=== PATIENT | female | born 1965 | race Caucasian/White ===

== ENCOUNTER → 2017-10-14 | Outpatient (REF) | payer OTHER ==
[2017-10-14 20:57] LABS: PLATELET COUNT, AUTOMATED 178 K/uL (150-450)
== END ==
PROVIDERS: ATTEND Family Medicine
DX: R10.9 Unspecified abdominal pain (principal)
CPT/HCPCS: 82040; 82247; 82310; 82374; 82435; 82565; 82947; 84075; 84132; 84155; 84295; 84450; 84460; 84520; 85025

== ENCOUNTER → 2017-10-18 | Outpatient (CLI) | payer OTHER ==
--- NOTE | 2017-10-18 11:00 | RADIOLOGY IMAGING REPORT ---
FACILITY: [facility] - [place] PATIENT NAME: Mikayla Mooney : 1965 MR: [id number] V: [id number] EXAM DATE: ORDERING PHYSICIAN: YURI REAL TECHNOLOGIST: Location: [facility] - [place] Patient: Mikayla Mooney : 1965 Visit/Account:[id number] Date of Sevice: 10/18/2017 EXAMINATION: Abdominal ultrasound complete HISTORY: Abdominal pain. COMPARISON: None. FINDINGS: Gallbladder: No stones, wall thickening, pericholecystic fluid or sonographic Carr sign. Liver: Hepatomegaly although the liver margins appear smooth and there is no evidence of focal mass. The echotexture appears homogeneous Common duct: Normal measuring 2.3 mm. Pancreas: There is a 7.8 mm echogenic mass in the tail the pancreas Spleen: Normal in size and echogenicity measuring 9.1 cm in length. Kidneys: Normal in size and echogenicity, the right measures 11.2 cm in length, and the left 10.2 cm . No hydronephrosis. There is a 1 cm cyst superior pole the right kidney Upper abdominal aorta and IVC: Negative. Ascites: None. IMPRESSION: Hepatomegaly although the liver is of normal echogenicity with no evidence of focal hepatic mass. 7.8 mm echogenic mass in the tail the pancreas. This could be further evaluated with CT or MR the pa ncreas with and without contrast 1 cm cyst superior pole the right kidney Report Dictated By: Astrid Gómez MD at 10/18/2017 10:53 AM Report E-Signed By: Astrid Gómez MD at 10/18/2017 10:56 AM WSN:[email or web address]
== END ==
LOC: US 03:58
PROVIDERS: ATTEND Family Medicine
DX: R16.0 Hepatomegaly, not elsewhere classified (principal); R19.09 Other intra-abdominal and pelvic swelling, mass and lump; N28.1 Cyst of kidney, acquired
CPT/HCPCS: 76700

== ENCOUNTER → 2017-10-22 | Outpatient (CLI) | payer OTHER | LOC: LAB 10:54 | PROVIDERS: ATTEND Nurse Practitioner Psychiatric/Mental Health | DX: R10.9 Unspecified abdominal pain (principal) | CPT/HCPCS: 36415; 82150; 83690 ==